=== PATIENT | female | born 1995 | race Hispanic/Latino ===

== ENCOUNTER 2017-11-28 04:12 | Emergency (ER) | payer MEDICAID | END 2017-11-28 05:50 | disposition home or self-care (01) | LOC: EDH 04:12 | DX: O99.512 Diseases of the respiratory system complicating pregnancy, second trimester (principal); J02.9 Acute pharyngitis, unspecified; Z3A.26 26 weeks gestation of pregnancy; Z90.49 Acquired absence of other specified parts of digestive tract ==

== ENCOUNTER 2017-12-23 01:48 | Observation (INO) | payer MEDICAID ==
[~2017-12-23] VITALS: Ht 175.3 cm; Wt 117.5 kg
[2017-12-23 02:03] VITALS: BP 132/81
[2017-12-23] MEDS ORDERED: PREN1TAB89 PO (02:06)
[2017-12-23] MEDS ORDERED: ACET-2247 PO (02:06)
[2017-12-23] MEDS ORDERED: LACTATED RINGERS 1000ML IV PRN (02:15)
[2017-12-23] MEDS ORDERED: LACTATED RINGERS 1000ML 1,000 ML IV SCH (02:15)
[2017-12-23 02:28] LABS: APPEARANCE,URINE Clear (CLEAR); BILIRUBIN,URINE Negative (NEGATIVE); COLOR,URINE Yellow (YELLOW); GLUCOSE, URINE (UA) Negative (NEGATIVE); KETONES,URINE Negative (NEGATIVE); LEUKOCYTE ESTERASE ,URINE Trace (NEGATIVE); NITRATE,URINE Negative (NEGATIVE); OCCULT BLOOD,URINE Negative (NEGATIVE); PROTEIN,URINE Negative (NEGATIVE); UROBILINOGEN,URINE 0.2 mg/dL (0.2-1.0)
[2017-12-23 02:35] LABS: AMPHET/METH SCREEN,URINE NEGATIVE (NEGATIVE); BARBITURATE SCREEN, URINE NEGATIVE (NEGATIVE); BENZODIAZEPINES SCREEN,URINE NEGATIVE (NEGATIVE); CANNABINOID SCREEN,URINE NEGATIVE (NEGATIVE); COCAINE SCREEN,URINE NEGATIVE (NEGATIVE); OPIATE SCREEN,URINE NEGATIVE (NEGATIVE); PHENCYCLIDINE SCREEN,URINE NEGATIVE (NEGATIVE)
[2017-12-23 02:40] LABS: BACTERIA,URINE Rare /HPF (None Seen); RBC,URINE 0-1 /HPF (0-1); SQUAMOUS EPITHELIAL CELL,UR 0-2 /HPF (0-2)
[2017-12-23] MEDS ORDERED: LACTATED RINGERS 1000ML 1,000 ML IV PRN (04:00)
== END 2017-12-23 04:00 | disposition home or self-care (01) ==
LOC: EDH 01:48 → LDH 01:49
PROVIDERS: ADMIT Obstetrics & Gynecology; ATTEND Obstetrics & Gynecology
DX: O26.893 Other specified pregnancy related conditions, third trimester (principal); R10.30 Lower abdominal pain, unspecified; Z3A.29 29 weeks gestation of pregnancy
CPT/HCPCS: 80305; 81001; 96360; 99285; G0378 ×2

== ENCOUNTER 2018-01-04 22:14 | Observation (INO) | payer MEDICAID ==
[~2018-01-04] VITALS: Ht 175.3 cm; Wt 118.8 kg
[~2018-01-04 22:14] MED LIST: ACET-2247 PO; PREN1TAB89 PO
[2018-01-04 23:07] LABS: APPEARANCE,URINE Clear (CLEAR); BILIRUBIN,URINE Negative (NEGATIVE); COLOR,URINE Yellow (YELLOW); GLUCOSE, URINE (UA) Negative (NEGATIVE); KETONES,URINE Negative (NEGATIVE); LEUKOCYTE ESTERASE ,URINE Small (NEGATIVE); NITRATE,URINE Negative (NEGATIVE); OCCULT BLOOD,URINE Negative (NEGATIVE); PROTEIN,URINE Negative (NEGATIVE); UROBILINOGEN,URINE 0.2 mg/dL (0.2-1.0)
[2018-01-04 23:13] LABS: AMPHET/METH SCREEN,URINE NEGATIVE (NEGATIVE); BARBITURATE SCREEN, URINE NEGATIVE (NEGATIVE); BENZODIAZEPINES SCREEN,URINE NEGATIVE (NEGATIVE); CANNABINOID SCREEN,URINE NEGATIVE (NEGATIVE); COCAINE SCREEN,URINE NEGATIVE (NEGATIVE); OPIATE SCREEN,URINE NEGATIVE (NEGATIVE); PHENCYCLIDINE SCREEN,URINE NEGATIVE (NEGATIVE)
[2018-01-04 23:48] LABS: BACTERIA,URINE Rare /HPF (None Seen); RBC,URINE None Seen /HPF (0-1); SQUAMOUS EPITHELIAL CELL,UR Rare /HPF (0-2)
[2018-01-04] MEDS ORDERED: LACTATED RINGERS 1000ML 1,000 ML IV PRN (23:58)
== END 2018-01-05 07:15 | disposition home or self-care (01) ==
LOC: EDH 22:14 → LDH 22:15
PROVIDERS: ADMIT Internal Medicine; ATTEND Internal Medicine
DX: O26.893 Other specified pregnancy related conditions, third trimester (principal); M25.521 Pain in right elbow; V43.62XA Car passenger injured in collision with other type car in traffic accident, initial encounter; Y93.89 Activity, other specified; Y92.410 Unspecified street and highway as the place of occurrence of the external cause; Y99.8 Other external cause status
CPT/HCPCS: 76805; 80305; 81001; 96360; 96361; 99285; G0378 ×9; J7120

== ENCOUNTER 2018-12-27 23:37 | Emergency (ER) | payer MEDICAID, OTHER ==
[2018-12-28] MEDS ORDERED: PREDNISONE 20 MG TABLET ONE (00:49)
== END 2018-12-28 01:13 | disposition home or self-care (01) ==
LOC: EDH 23:37
DX: G51.0 Bell's palsy (principal); Z90.49 Acquired absence of other specified parts of digestive tract; Z98.890 Other specified postprocedural states; Z72.0 Tobacco use
CPT/HCPCS: 81025

== ENCOUNTER 2019-05-12 21:50 | Emergency (ER) | payer MEDICAID ==
[2019-05-12 22:09] LABS: APPEARANCE,URINE Clear (CLEAR); BILIRUBIN,URINE Negative (NEGATIVE); COLOR,URINE Dark Yellow (YELLOW); GLUCOSE, URINE (UA) Negative (NEGATIVE); KETONES,URINE Negative (NEGATIVE); LEUKOCYTE ESTERASE ,URINE Moderate (NEGATIVE); NITRATE,URINE Negative (NEGATIVE); OCCULT BLOOD,URINE Negative (NEGATIVE); PH,URINE 5.5 (5.0-8.0); PROTEIN,URINE Negative (NEGATIVE)
[2019-05-12 22:18] LABS: RBC,URINE None Seen /HPF (0-1)
[2019-05-12 22:19] LABS: BACTERIA,URINE Few /HPF (None Seen); SQUAMOUS EPITHELIAL CELL,UR Many /HPF (0-2)
[2019-05-12 22:26] LABS: BASOPHILS % (AUTO) 1.1 % (0.0-5.0); EOSINOPHILS % (AUTO) 1.4 % (0.0-8.0); HEMATOCRIT 36.2 % (36-48); LYMPHOCYTES % (AUTO) 18.5 % (21.0-51.0); MEAN CORPUSCULAR HEMOGLOBIN 26.6 pg (27.0-33.0); MEAN CORPUSCULAR HGB CONC 33.4 g/dL (32.0-36.0); MEAN CORPUSCULAR VOLUME 79.7 fL (79-99); PLATELET COUNT (AUTO) 321 K/uL (130-400); RED BLOOD CELL COUNT(AUTO) 4.54 MIL/uL (4.00-5.50); RED CELL DISTRIBUTION WIDTH 13.8 % (11.0-15.5); WHITE BLOOD COUNT (AUTO) 6.1 K/uL (4.8-10.8)
[2019-05-12 22:35] LABS: CREATININE 0.8 mg/dL (0.5-1.5); POTASSIUM 3.5 mmol/L (3.5-5.1)
[2019-05-12 22:40] LABS: ALBUMIN 3.5 g/dL (3.5-5.0); BILIRUBIN,TOTAL 0.3 mg/dL (0.2-1.0); TOTAL PROTEIN, SERUM 7.5 g/dL (6.0-8.3)
[2019-05-12] MEDS ORDERED: ONDANSETRON HCL 4 MG/2 ML VIAL ONE (22:49)
[2019-05-12] MEDS ORDERED: AMOXICILLIN 500 MG CAPSULE PO ONE (22:49)
== END 2019-05-13 01:49 | disposition home or self-care (01) ==
LOC: EDH 21:50
DX: A09 Infectious gastroenteritis and colitis, unspecified (principal); N39.0 Urinary tract infection, site not specified; Z90.49 Acquired absence of other specified parts of digestive tract; Z87.891 Personal history of nicotine dependence
CPT/HCPCS: 36415; 80053; 81001; 82150; 82270; 83630; 83690; 85025; 87046; 87088; 87177; 87804 ×2; 96361; 96374; 99284; J2405

== ENCOUNTER 2019-10-13 04:07 | Observation (INO) | payer MEDICAID ==
[2019-10-13] MEDS ORDERED: LACTATED RINGERS 1000ML 1,000 ML IV SCH ×2 (04:45→06:00)
[2019-10-13 04:54] LABS: BILIRUBIN,URINE Negative (NEGATIVE); COLOR,URINE Yellow (YELLOW); GLUCOSE, URINE (UA) Negative (NEGATIVE); KETONES,URINE 15 mg/dL (NEGATIVE); LEUKOCYTE ESTERASE ,URINE Small (NEGATIVE); NITRATE,URINE Negative (NEGATIVE); OCCULT BLOOD,URINE Negative (NEGATIVE); PROTEIN,URINE Negative (NEGATIVE)
[2019-10-13 05:03] LABS: AMPHET/METH SCREEN,URINE NEGATIVE (NEGATIVE); APPEARANCE,URINE SLIGHTLY CLOUDY (CLEAR); BARBITURATE SCREEN, URINE NEGATIVE (NEGATIVE); BENZODIAZEPINES SCREEN,URINE NEGATIVE (NEGATIVE); CANNABINOID SCREEN,URINE NEGATIVE (NEGATIVE); COCAINE SCREEN,URINE NEGATIVE (NEGATIVE); OPIATE SCREEN,URINE NEGATIVE (NEGATIVE); PHENCYCLIDINE SCREEN,URINE NEGATIVE (NEGATIVE)
[2019-10-13 05:08] LABS: BACTERIA,URINE Rare /HPF (None Seen); MUCUS,URINE Rare LPF (None Seen); RBC,URINE None Seen /HPF (0-1); SQUAMOUS EPITHELIAL CELL,UR Rare /HPF (0-2); WBC,URINE 0-1 /HPF (0-1)
[2019-10-13] MEDS ORDERED: LACTATED RINGERS 1000ML IV PRN (06:00)
[2019-10-13] MEDS ORDERED: LACTATED RINGERS 1000ML 1,000 ML IV PRN (06:45)
== END 2019-10-13 06:55 | disposition home or self-care (01) ==
LOC: EDH 04:07 → LDH 04:08
PROVIDERS: ADMIT Obstetrics & Gynecology; ATTEND Obstetrics & Gynecology
DX: O21.9 Vomiting of pregnancy, unspecified (principal); R19.7 Diarrhea, unspecified; Z87.891 Personal history of nicotine dependence; Z3A.30 30 weeks gestation of pregnancy
CPT/HCPCS: 80305; 81001; 99284; G0378 ×2; 96360

== ENCOUNTER 2023-11-05 06:03 | Emergency (ER) | payer MEDICAID, OTHER ==
[~2023-11-05] VITALS: Ht 175.3 cm; Wt 117.9 kg
[2023-11-05 06:27] LABS: BASOPHILS # (AUTO) 0.07 K/uL (0.00-0.20); BASOPHILS % (AUTO) 0.7 % (0.0-5.0); EOSINOPHILS % (AUTO) 3.9 % (0.0-8.0); HEMATOCRIT 28.5 % (36-48); IMMATURE GRANULOCYTE ABSOLUTE 0.05 K/uL (0-1); LYMPHOCYTES % (AUTO) 19.1 % (21.0-51.0); MEAN CORPUSCULAR HEMOGLOBIN 20.8 pg (27.0-33.0); MEAN CORPUSCULAR HGB CONC 30.2 g/dL (32.0-36.0); MONOCYTES # (AUTO) 0.6 K/uL (0.1-1.0); MONOCYTES % (AUTO) 5.4 % (3.0-13.0); NEUTROPHILS # (AUTO) 7.2 K/uL (1.8-7.7); NEUTROPHILS % (AUTO) 70.4 % (40.0-77.0); PLATELET COUNT (AUTO) 484 K/uL (130-400); RED BLOOD CELL COUNT(AUTO) 4.13 MIL/uL (4.00-5.50); WHITE BLOOD COUNT (AUTO) 10.2 K/uL (4.8-10.8)
[2023-11-05] MEDS: LIDOCAINE HCL 2% VISCOUS 15 ML UDCUP PO ONE (06:32)
[2023-11-05] MEDS: DICYCLOMINE HCL 10 MG/5 ML ML PO ONE (06:32)
[2023-11-05] MEDS: MAG/ALUM/SIMETH 30 ML UDCUP PO ONE (06:32)
[2023-11-05] MEDS: 0.9%NACL 1000ML 1,000 ML IV ONE (06:39)
[2023-11-05] MEDS: METOCLOPRAMIDE 10 MG/2 ML VIAL IVP ONE (06:39)
[2023-11-05 06:46] LABS: ALBUMIN 3.4 g/dL (3.5-5.0); BILIRUBIN,TOTAL 0.3 mg/dL (0.2-1.0); POTASSIUM 3.5 mmol/L (3.5-5.1); TOTAL PROTEIN, SERUM 7.2 g/dL (6.0-8.3)
[2023-11-05 06:54] LABS: APPEARANCE,URINE CLOUDY (CLEAR); BILIRUBIN,URINE NEGATIVE (NEGATIVE); COLOR,URINE YELLOW (YELLOW); GLUCOSE, URINE (UA) NEGATIVE (NEGATIVE); KETONES,URINE NEGATIVE (NEGATIVE); LEUKOCYTE ESTERASE ,URINE 75 Leu/uL (NEGATIVE); NITRATE,URINE NEGATIVE (NEGATIVE); OCCULT BLOOD,URINE MODERATE (NEGATIVE); PH,URINE 5.5 (5.0-8.0); PROTEIN,URINE 20 mg/dL (NEGATIVE)
[2023-11-05 07:19] LABS: HCG,QUALITATIVE URINE NEGATIVE (NEGATIVE)
[2023-11-05 07:35] LABS: ADD UA MICROSCOPIC YES
[2023-11-05 07:38] LABS: BACTERIA,URINE RARE /HPF (None Seen); CALCIUM OXALATE CRYSTALS,UR MANY /LPF (None Seen); MUCUS,URINE MANY LPF (None Seen); SQUAMOUS EPITHELIAL CELL,UR MANY /HPF (0-2)
[2023-11-05] MEDS: FAMOTIDINE 20MG VIAL IV ONE (08:39)
[2023-11-05] MEDS ORDERED: FAMO-136 PO (08:45)
[2023-11-05 09:00] VITALS: BP 104/61; PULSE 73; RESP 16; O2SAT 100
== END 2023-11-05 09:00 | disposition home or self-care (01) ==
LOC: EDH 06:03
DX: K29.70 Gastritis, unspecified, without bleeding (principal); Z79.899 Other long term (current) drug therapy; Z90.49 Acquired absence of other specified parts of digestive tract; Z98.890 Other specified postprocedural states
CPT/HCPCS: 99284; 96374; 96361; 96375; 80053; 83690; 85025; 87088; 81001; 81025; 36415; J3490; J7030; J2765